=== PATIENT | female | born 1960 | race American Indian/Alaskan Native ===

== ENCOUNTER 2019-10-23 09:30 | Emergency (ER) | payer SELFPAY ==
[2019-10-23 09:47] VITALS: BP 113/75
[2019-10-23] MEDS ORDERED: KETOROLAC 60 MG/2 ML INJ IM ONE (11:54)
--- NOTE | 2019-10-23 11:59 | Emergency Department Report ---
ED General Adult HPI - General Chief complaint: Pain General Stated complaint: KNEE PAIN,LOWER BACK PAIN/HEADACHE Time Seen by Provider: 10/23/19 11:52 Source: patient Mode of arrival: Ambulatory Limitations: No Limitations - History of Present Illness Initial comments: 58-year-old female with a history of chronic arthritis. She is now complaining of low back pain bilateral knee pain. Patient denies any recent falls or injuries. she states that this is her usual pain when her arthritis is flaring up. She is currently without a PCP and is out of medications. She denies chest pain shortness of breath no nausea no vomiting no dysuria no other symptoms. Location: back, lower extremity Improves with: none Associated Symptoms: denies: confusion, chest pain, cough, diaphoresis, fever/chills, headaches, loss of appetite, malaise, nausea/vomiting, shortness of breath, syncope, weakness Treatments Prior to Arrival: none - Related Data Previous Rx's Medication Instructions Recorded Last Taken Type Cyclobenzaprine [Flexeril] 10 mg PO TID PRN #21 tablet 10/23/19 Unknown Rx Ibuprofen [Motrin] 600 mg PO Q8H PRN #30 tablet 10/23/19 Unknown Rx ED Review of Systems ROS: Stated complaint: KNEE PAIN,LOWER BACK PAIN/HEADACHE Other details as noted in HPI Comment: All other systems reviewed and negative Constitutional: no symptoms reported Eyes: denies: eye pain, vision change Respiratory: denies: cough Cardiovascular: denies: chest pain, palpitations, dyspnea on exertion Gastrointestinal: denies: abdominal pain, constipation Musculoskeletal: back pain, other (bilateral knee pain ) Neurological: denies: headache, weakness, numbness, paresthesias, abnormal gait ED Past Medical Hx - Past Medical History Previous Medical History?: Yes Hx Arthritis: Yes Hx Psychiatric Treatment: Yes - Surgical History Past Surgical History?: No - Social History Smoking Status: Former Smoker Substance Use Type: None - Medications Home Medications: Home Medications Medication Instructions Recorded Confirmed Last Taken Type Cyclobenzaprine [Flexeril] 10 mg PO TID PRN #21 tablet 10/23/19 Unknown Rx Ibuprofen [Motrin] 600 mg PO Q8H PRN #30 tablet 10/23/19 Unknown Rx ED Physical Exam - General Limitations: No Limitations General appearance: alert, in no apparent distress - Head Head exam: Present: atraumatic - Eye Eye exam: Present: normal appearance - Neck Neck exam: Present: normal inspection - Respiratory Respiratory exam: Present: normal lung sounds bilaterally. Absent: respiratory distress, wheezes, rales - Extremities Exam Extremities exam: Present: normal inspection - Back Exam Back exam: Present: normal inspection, other (ambulatory with rolling walker) - Neurological Exam Neurological exam: Present: alert, oriented X3 - Psychiatric Psychiatric exam: Present: anxious - Skin Skin exam: Present: warm, dry, intact, normal color. Absent: rash ED Course Vital Signs 10/23/19 09:44 Temperature 98.4 F Pulse Rate 93 H Respiratory 20 Rate Blood Pressure 113/75 O2 Sat by Pulse 98 Oximetry ED Medical Decision Making - Medical Decision Making 58-year-old female with a history of arthritis. Currently out of her arthritic medications because she is does not have a PCP at this time. She is given Toradol IM. plan to discharge her with muscle relaxant and anti-inflammatory. Referral for PCP given. Critical Care Time: No Critical care attestation.: If time is entered above; I have spent that time in minutes in the direct care of this critically ill patient, excluding procedure time. ED Disposition Clinical Impression: Arthritis Back pain Qualifiers: Back pain location: low back pain Chronicity: chronic Back pain laterality: unspecified Sciatica presence: without sciatica Qualified Code(s): M54.5 - Low back pain; G89.29 - Other chronic pain Knee pain, bilateral Qualifiers: Chronicity: chronic Qualified Code(s): M25.561 - Pain in right knee; M25.562 - Pain in left knee; G89.29 - Other chronic pain Disposition: TO HOME OR SELFCARE Is pt being admited?: No Does the pt Need Aspirin: No Condition: Stable Instructions: Arthralgia (ED), Back Pain (ED), Knee Pain (ED), Knee Exercises (GEN) Prescriptions: Cyclobenzaprine [Flexeril] 10 mg PO TID PRN #21 tablet PRN Reason: Muscle Spasm Ibuprofen [Motrin] 600 mg PO Q8H PRN #30 tablet PRN Reason: Pain Referrals: PRIMARY MD BO [Primary Care Provider] - 3-5 Days NNAMDI GAYTAN MD [Staff Physician] - 3-5 Days Time of Disposition: 12:04
== END 2019-10-23 12:10 | disposition home or self-care (01) ==
LOC: ED 09:30
DX: M19.90 Unspecified osteoarthritis, unspecified site (principal); M54.5 Low back pain; M25.561 Pain in right knee; M25.562 Pain in left knee; Z79.899 Other long term (current) drug therapy; Z87.891 Personal history of nicotine dependence; Z79.1 Long term (current) use of non-steroidal anti-inflammatories (NSAID)
CPT/HCPCS: 96372; 99282; J1885

== ENCOUNTER 2021-05-29 08:33 | Outpatient (CLI) | payer OTHER ==
--- NOTE | 2021-05-29 09:50 | XRay Report ---
LUMBAR SPINE 3 VIEWS 0922 INDICATION: BACK PAIN COMPARISON: None available. FINDINGS: There is slight motion artifact and on AP view the marker slightly overlies the spine. Mild scoliosis is seen. Mild diffuse degenerative changes are noted. Disc spaces show slight narrowin g at L2-3, L3-4, and L4-5. No significant subluxation is seen. No fractures are noted. Mild lower fac et arthritic changes are seen. RIGHT KNEE 2 VIEWS 0919 INDICATION: Right knee pain COMPARISON: None available. FINDINGS: Slight patellofemoral degenerative changes are seen. Probable bone island is noted in the p roximal tibia. No fractures or dislocations are noted. No joint effusions are seen. Signer Name: Antwon Leroy MD Signed: 05/29/2021 9:46 AM Workstation Name: [id number]
== END 2021-05-29 08:34 | disposition home or self-care (01) ==
LOC: XRAY 08:33
PROVIDERS: ATTEND Internal Medicine
DX: Z02.71 Encounter for disability determination (principal); M51.36 Other intervertebral disc degeneration, lumbar region; M47.816 Spondylosis without myelopathy or radiculopathy, lumbar region; M41.86 Other forms of scoliosis, lumbar region; M17.11 Unilateral primary osteoarthritis, right knee
CPT/HCPCS: 72100

== ENCOUNTER 2021-11-21 10:27 | Outpatient (CLI) | payer OTHER ==
--- NOTE | 2021-11-21 13:11 | XRay Report ---
RIGHT KNEE 2 VIEW(S) INDICATION / CLINICAL INFORMATION: RIGHT KNEE PAIN COMPARISON: None available. FINDINGS: BONES / JOINT(S): No acute fracture or subluxation. No significant arthritis. SOFT TISSUES: No significant abnormality. ADDITIONAL FINDINGS: None. Signer Name: Immanuel Bear DO Signed: 11/21/2021 1:07 PM Workstation Name: [id number]
--- NOTE | 2021-11-21 13:11 | XRay Report ---
LUMBAR SPINE 3 VIEWS INDICATION / CLINICAL INFORMATION: BACK PAIN. COMPARISON: None available. FINDINGS: VERTEBRAE: No acute fracture. No significant malalignment. DISC SPACES / FACET JOINTS:Mild degenerative facet disease noted at L5-S1. PARASPINAL SOFT TISSUES:No significant abnormality. 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 Signer Name: Immanuel Bear DO Signed: 11/21/2021 1:07 PM Workstation Name: [id number]
== END 2021-11-21 10:28 | disposition home or self-care (01) ==
LOC: XRAY 10:27
PROVIDERS: ATTEND Internal Medicine
DX: Z02.71 Encounter for disability determination (principal); M47.817 Spondylosis without myelopathy or radiculopathy, lumbosacral region
CPT/HCPCS: 72100